=== PATIENT | male | born 1955 | race Hispanic/Latino ===

== ENCOUNTER 2019-07-04 11:41 | Emergency (ER) | payer OTHER ==
[~2019-07-04 11:41] MED LIST: ASPI-1005 PO; FENO145T PO; IBUP-2070 PO; METO25TA3 PO; ROSU5TAB PO
[2019-07-05] MEDS ORDERED: IBUP-2784 PO (10:53)
[2019-07-05] MEDS ORDERED: COLC0.6T67 PO (10:57)
[2019-07-05] MEDS ORDERED: ALLO100T PO (10:57)
[2019-07-05] MEDS ORDERED: INDO50CA98 PO (11:58)
== END 2019-07-04 12:04 | disposition left against medical advice (07) ==
LOC: EDH 11:41
DX: Z53.21 Procedure and treatment not carried out due to patient leaving prior to being seen by health care provider (principal); Z87.891 Personal history of nicotine dependence

== ENCOUNTER 2019-07-04 13:32 | Observation (INO) | payer OTHER ==
[~2019-07-04] VITALS: Ht 188 cm; Wt 109.5 kg
[2019-07-04 15:21] LABS: BASOPHILS % (AUTO) 0.2 % (0.0-5.0); EOSINOPHILS % (AUTO) 0.7 % (0.0-8.0); HEMATOCRIT 45.3 % (42-54); MEAN CORPUSCULAR HEMOGLOBIN 28.9 pg (27.0-33.0); MEAN CORPUSCULAR HGB CONC 32.9 g/dL (32.0-36.0); MONOCYTES % (AUTO) 8.9 % (3.0-13.0); PLATELET COUNT (AUTO) 274 K/uL (130-400); RED BLOOD CELL COUNT(AUTO) 5.15 MIL/uL (4.50-6.20); WHITE BLOOD COUNT (AUTO) 12.3 K/uL (4.8-10.8)
[2019-07-04 15:28] LABS: CREATININE 1.5 mg/dL (0.5-1.5); POTASSIUM 4.2 mmol/L (3.5-5.1)
[2019-07-04 15:32] LABS: ALBUMIN 3.5 g/dL (3.5-5.0); BILIRUBIN,TOTAL 0.7 mg/dL (0.2-1.0); INR 0.99 (0.85-1.15); PARTIAL THROMBOPLASTIN TIME 31.2 SEC (26.3-35.5); PROTHROMBIN TIME 10.4 SEC (9.6-11.6); TOTAL PROTEIN, SERUM 9.3 g/dL (6.0-8.3)
[2019-07-04 15:54] LABS: B-TYPE NATRIURETIC PEPTIDE 36 pg/mL (0-100)
[2019-07-04] MEDS ORDERED: IOHEXOL 350 MG/ML 100ML INFUS..BTL IV ONE (16:42)
[2019-07-04] MEDS ORDERED: SODIUM CHLORIDE 0.9% 1000ML 1,000 ML IV ONE ×2 (16:45→21:38)
[2019-07-04] MEDS ORDERED: ONDANSETRON HCL 4 MG/2 ML VIAL ONE (16:48)
[2019-07-04] MEDS: SODIUM CHLORIDE 0.9% 1000ML 1,000 ML IV SCH (21:15)
[2019-07-04] MEDS ORDERED: ONDANSETRON HCL 4 MG/2 ML VIAL IV PRN (21:15)
[2019-07-04] MEDS ORDERED: MORPHINE SULFATE 2 MG/ML 1ML SYG IV PRN (21:15)
[2019-07-04] MEDS ORDERED: LACTULOSE 20 GM/30 ML UDCUP PO PRN (21:15)
[2019-07-04] MEDS ORDERED: ACETAMINOPHEN 325 MG TAB PO PRN ×2 (21:15)
[2019-07-04 22:10] VITALS: BP 144/91
[2019-07-04] MEDS ORDERED: HYDROCODONE/ACETAMINOPHEN 5/325 MG TAB PO PRN (23:00)
[2019-07-04] MEDS: HYDROCODONE/ACETAMINOPHEN 5/325 MG TAB PO PRN (23:53)
[2019-07-05 04:00] VITALS: BP 113/69
[2019-07-05 08:17] VITALS: BP 122/75
[2019-07-05] MEDS: FAMOTIDINE 20MG TAB 20 MG TAB PO SCH ×2 (10:46→10:48)
[2019-07-05] MEDS: SODIUM CHLORIDE 0.9% 1000ML 1,000 ML IV SCH ×2 (10:47→14:30)
[2019-07-05] MEDS: ENOXAPARIN SODIUM 40 MG/0.4 ML SYRINGE SQ SCH (10:47)
[2019-07-05] MEDS ORDERED: IBUP-2784 PO (10:53)
[2019-07-05] MEDS ORDERED: ALLO100T PO (10:57)
[2019-07-05] MEDS ORDERED: COLC0.6T67 PO (10:57)
[2019-07-05 11:23] VITALS: BP 126/79
[2019-07-05] MEDS ORDERED: ALLOPURINOL 300 MG TABLET PO SCH (11:45)
[2019-07-05] MEDS ORDERED: INDO50CA98 PO (11:58)
[2019-07-05] MEDS ORDERED: INDOMETHACIN 25 MG CAP PO PRN (12:00)
[2019-07-05] MEDS ORDERED: PHARMACY COMMUNICATION MISC SCH (12:00)
[2019-07-05] MEDS ORDERED: COLCHICINE 0.6 MG TABLET PO SCH ×2 (12:15→13:30)
[2019-07-05] MEDS ORDERED: GADODIAMIDE 10 MMOL/20 ML VIAL IV ONE (14:17)
--- NOTE | 2019-07-05 15:15 | NUR ---
CONSULT DR.SIX LUONG, 'S TEACHING YOUNG CAME IN TO TALK TO PT, PT IS CURRENTLY AT MRI, SPOKE TO FAMILY MEMBER AND INFORMED WILL SEE PT TOMORROW.
--- NOTE | 2019-07-05 16:23 | NUR ---
STEEPING PRESS TENDER CALLED IN CONSULT FOR SHANNA THROUGH OFFICE PAGE OUT . PENDING CALL BACK .
[2019-07-05 16:44] VITALS: BP 122/76
--- NOTE | 2019-07-05 18:23 | NUR ---
CM NOTES CHART REVIEWED, NO TRIGGERS, DETAILED CM ASSESSMENT DEFERRED AT THIS TIME
[2019-07-05 20:00] VITALS: BP 124/77
--- NOTE | 2019-07-05 20:20 | NUR ---
Patient was seen and examined in his room ,he appears comfortable however when asked how he is doing he complained he is having chest pain he described it as sharp and 10/10 pain level.He said that it feels like someone is sitting on his chest.Patient was given hydrocodone 2 tabs p.o as patient requested,ECG was taken and MADELIN Carolina was notified and came to examined the patient as well. ECG is normal sinus rhythm.
[2019-07-05] MEDS: HYDROCODONE/ACETAMINOPHEN 5/325 MG TAB PO PRN (20:26)
[2019-07-05] MEDS ORDERED: NITROGLYCERIN 0.4 MG SL TAB SL PRN (20:45)
--- NOTE | 2019-07-05 21:00 | NUR ---
Patient verbalized he feels much better and denies any chest pain at this time, family is at bedside and instructed to use call light for assistance.
[2019-07-05 23:34] VITALS: BP 126/76
[2019-07-06 03:48] VITALS: BP 127/70
[2019-07-06] MEDS: SODIUM CHLORIDE 0.9% 1000ML 1,000 ML IV SCH ×4 (03:50→16:27)
[2019-07-06 05:33] LABS: BASOPHILS % (AUTO) 0.7 % (0.0-5.0); EOSINOPHILS % (AUTO) 5.7 % (0.0-8.0); HEMATOCRIT 39.4 % (42-54); LYMPHOCYTES % (AUTO) 27.9 % (21.0-51.0); MEAN CORPUSCULAR HGB CONC 32.7 g/dL (32.0-36.0); MEAN CORPUSCULAR VOLUME 88.5 fL (79-99); MONOCYTES % (AUTO) 11.1 % (3.0-13.0); NEUTROPHILS % (AUTO) 54.2 % (40.0-77.0); PLATELET COUNT (AUTO) 268 K/uL (130-400); RED BLOOD CELL COUNT(AUTO) 4.45 MIL/uL (4.50-6.20); RED CELL DISTRIBUTION WIDTH 12.5 % (11.0-15.5); WHITE BLOOD COUNT (AUTO) 5.5 K/uL (4.8-10.8)
[2019-07-06 05:54] LABS: ALBUMIN 2.8 g/dL (3.5-5.0); BILIRUBIN,TOTAL 0.3 mg/dL (0.2-1.0); CREATININE 0.8 mg/dL (0.5-1.5); POTASSIUM 3.6 mmol/L (3.5-5.1); TOTAL PROTEIN, SERUM 7.4 g/dL (6.0-8.3)
[2019-07-06] MEDS: ENOXAPARIN SODIUM 40 MG/0.4 ML SYRINGE SQ SCH (08:05)
[2019-07-06 08:22] VITALS: BP 123/74
[2019-07-06] MEDS: MORPHINE SULFATE 2 MG/ML 1ML SYG IVP PRN (11:20)
[2019-07-06 11:46] VITALS: BP 131/79
[2019-07-06 17:10] VITALS: BP 147/93
[2019-07-06 19:30] VITALS: BP 127/88
[2019-07-06 23:56] VITALS: BP 141/88
[2019-07-07] MEDS: SODIUM CHLORIDE 0.9% 1000ML 1,000 ML IV SCH ×2 (01:43→05:52)
[2019-07-07] MEDS: MORPHINE SULFATE 2 MG/ML 1ML SYG IVP PRN (02:20)
[2019-07-07 04:00] VITALS: BP 135/89
[2019-07-07 04:07] LABS: BASOPHILS % (AUTO) 0.6 % (0.0-5.0); EOSINOPHILS % (AUTO) 5.5 % (0.0-8.0); HEMATOCRIT 39.1 % (42-54); LYMPHOCYTES % (AUTO) 26.3 % (21.0-51.0); MEAN CORPUSCULAR HEMOGLOBIN 29.1 pg (27.0-33.0); MEAN CORPUSCULAR HGB CONC 33.8 g/dL (32.0-36.0); MEAN CORPUSCULAR VOLUME 86.1 fL (79-99); MONOCYTES % (AUTO) 10.7 % (3.0-13.0); NEUTROPHILS % (AUTO) 56.5 % (40.0-77.0); PLATELET COUNT (AUTO) 292 K/uL (130-400); RED BLOOD CELL COUNT(AUTO) 4.54 MIL/uL (4.50-6.20); RED CELL DISTRIBUTION WIDTH 12.2 % (11.0-15.5); WHITE BLOOD COUNT (AUTO) 5.4 K/uL (4.8-10.8)
[2019-07-07 04:19] LABS: BILIRUBIN,TOTAL 0.3 mg/dL (0.2-1.0); CREATININE 0.8 mg/dL (0.5-1.5); POTASSIUM 3.7 mmol/L (3.5-5.1); TOTAL PROTEIN, SERUM 7.5 g/dL (6.0-8.3)
[2019-07-07 08:04] VITALS: BP 131/81
--- NOTE | 2019-07-07 08:30 | NUR ---
CM NOTE CHART REVIWED, HERE FOR PAIN, YOUNG AND MOBILE;NO TRIGGERS TO CM, WILL JEIMY DETAILE DASSESSMENT AT THIS TIME UNLESS TRIGGERED Addendum: 07/08/19 at 1426 by ADE SCHREIBER RN CM Amended: Links added.
--- NOTE | 2019-07-07 08:50 | NUR ---
MATHEW LEARY PATIENT REPORTED TO ME THAT HE HAS NOT AMBULATED IN 3 DAYS. BEFORE THIS HOSPITALIZATION, PATIENT WAS AMBULATING. PAGED DR. LEARY TO INQUIRE ABOUT PHYSICAL ACTIVITY RESTRICTION PRIOR TO INITIATING PHYSICAL THERAPY EVALUATION.
[2019-07-07] MEDS ORDERED: IBUP-2070 PO (11:45)
[2019-07-07 11:55] VITALS: BP 115/73
--- NOTE | 2019-07-07 14:15 | NUR ---
DISCHARGE MEDICATIONS PATIENTS DAUGHTER STATES "WE NEED A PRESCRIPTION FOR TYLENOL #3 AND ALLOPURINOL." I ANSWERED THAT ALLOPURINOL WAS REPORTED A HOME MEDICATION, WHICH IS WHY HOSPITALIST ORDERED TO CONTINUE AT HOME. PATIENTS DAUGHTER REPLIED "[PATIENT] DOESNT HAVE A PRESCRIPTION. WE SAID IT WAS A HOME MEDICATION BECAUSE HE NEEDS IT." I ALSO EXPLAINED THAT HOSPITALIST PRESCRIBED IBUPROFEN BECAUSE MEDICATION IS A ANTI-INFLAMMATORY AND SHOULD HELP WITH GOUT EXACERBATION." PATIENTS DAUGHTER APPEARED UPSET, I PAGED HOSPITALIST TO INFORM OF PATIENT AND PATIENT DAUGHTER CONCERNS.
--- NOTE | 2019-07-07 14:20 | NUR ---
Sierra TOBIN NP SPOKE TO Sierra TOBIN NP FOR Dina JIMENEZ VIA TELEPHONE AND INFORMED OF PATIENT/FAMILY CONCERNS AND SHE REPLIED "IF PATIENT NEEDS ALLOPURINOL, DR. OTERO WILL PRESCRIBE AT FOLLOW-UP APPOINTMENT. AND I WILL NOT PRESCRIBE TYLENOL #3 BECAUSE IBUPROFEN IS ANTI-INFLAMMATORY AND IS WHAT PATIENT SHOULD TAKE FOR GOUT." INFORMED PATIENT OF THIS AND PATIENT WAS OKAY WITH THE ANSWER.
== END 2019-07-07 14:56 | disposition home or self-care (01) ==
LOC: EDH 13:32 → EDHIP 21:05 → 4DH 21:57
PROVIDERS: ADMIT Internal Medicine; ATTEND Internal Medicine
DX: N40.0 Benign prostatic hyperplasia without lower urinary tract symptoms (principal); M10.9 Gout, unspecified; M54.5 Low back pain; K76.0 Fatty (change of) liver, not elsewhere classified; R55 Syncope and collapse; M54.6 Pain in thoracic spine; R79.89 Other specified abnormal findings of blood chemistry; N28.9 Disorder of kidney and ureter, unspecified; I71.4 Abdominal aortic aneurysm, without rupture; I73.9 Peripheral vascular disease, unspecified; M17.11 Unilateral primary osteoarthritis, right knee; M19.90 Unspecified osteoarthritis, unspecified site; E79.0 Hyperuricemia without signs of inflammatory arthritis and tophaceous disease; Z90.49 Acquired absence of other specified parts of digestive tract; Z86.79 Personal history of other diseases of the circulatory system; Z87.39 Personal history of other diseases of the musculoskeletal system and connective tissue; Z87.442 Personal history of urinary calculi; Z79.899 Other long term (current) drug therapy
CPT/HCPCS: 36415 ×3; 71045 ×2; 71275; 72128; 72131; 72146; 72148; 73562; 74174; 80053 ×3; 82550; 83880; 84484 ×2; 84550; 85025 ×3; 85378; 85610; 85730; 93005 ×2; 96361 ×2; 96372 ×2; 96374; 96375; 96376; 97039; 97116; 97161; 99285; G0378 ×65; G8978; G8979; G8980; G8981; G8982; G8983; J1650 ×3; J2405 ×2; J7030 ×2; Q9967; A9579

== ENCOUNTER 2019-07-18 09:04 | Emergency (ER) | payer OTHER ==
[~2019-07-18 09:04] MED LIST changes: +ALLO100T PO; -ASPI-1005 PO; +COLC0.6T67 PO; -FENO145T PO; +INDO50CA98 PO; -METO25TA3 PO; -ROSU5TAB PO
[2019-07-18] MEDS ORDERED: ONDANSETRON HCL 4 MG/2 ML VIAL ONE (09:51)
[2019-07-18] MEDS ORDERED: SODIUM CHLORIDE 0.9% 1000ML 1,000 ML IV ONE (09:52)
[2019-07-18] MEDS ORDERED: MORPHINE SULFATE 4 MG/1ML SYG ONE (09:52)
[2019-07-18 10:32] LABS: BASOPHILS % (AUTO) 0.3 % (0.0-5.0); EOSINOPHILS % (AUTO) 0.2 % (0.0-8.0); HEMATOCRIT 44.9 % (42-54); LYMPHOCYTES % (AUTO) 12.9 % (21.0-51.0); MEAN CORPUSCULAR HEMOGLOBIN 28.8 pg (27.0-33.0); MEAN CORPUSCULAR HGB CONC 33.6 g/dL (32.0-36.0); MEAN CORPUSCULAR VOLUME 85.7 fL (79-99); MONOCYTES % (AUTO) 9.3 % (3.0-13.0); NEUTROPHILS % (AUTO) 76.9 % (40.0-77.0); PLATELET COUNT (AUTO) 332 K/uL (130-400); RED BLOOD CELL COUNT(AUTO) 5.24 MIL/uL (4.50-6.20); RED CELL DISTRIBUTION WIDTH 12.9 % (11.0-15.5); WHITE BLOOD COUNT (AUTO) 14.7 K/uL (4.8-10.8)
[2019-07-18 10:42] LABS: CREATININE 1.7 mg/dL (0.5-1.5)
[2019-07-18 10:43] LABS: INR 1.05 (0.85-1.15); PARTIAL THROMBOPLASTIN TIME 30.4 SEC (26.3-35.5)
[2019-07-18 10:46] LABS: ALBUMIN 3.4 g/dL (3.5-5.0); BILIRUBIN,TOTAL 0.9 mg/dL (0.2-1.0); TOTAL PROTEIN, SERUM 9.2 g/dL (6.0-8.3)
[2019-07-18 10:50] LABS: APPEARANCE,URINE Cloudy (CLEAR); BILIRUBIN,URINE Small (NEGATIVE); COLOR,URINE Dark Yellow (YELLOW); GLUCOSE, URINE (UA) Negative (NEGATIVE); KETONES,URINE Trace mg/dL (NEGATIVE); LEUKOCYTE ESTERASE ,URINE Trace (NEGATIVE); NITRATE,URINE Negative (NEGATIVE); OCCULT BLOOD,URINE Moderate (NEGATIVE); PROTEIN,URINE POS 2+ mg/dL (NEGATIVE)
[2019-07-18 11:04] LABS: BACTERIA,URINE Few /HPF (None Seen); MUCUS,URINE Few LPF (None Seen); RBC,URINE 0-1 /HPF (0-1); SQUAMOUS EPITHELIAL CELL,UR Rare /HPF (0-2)
== END 2019-07-18 12:15 | disposition home or self-care (01) ==
LOC: EDH 09:04
DX: G89.29 Other chronic pain (principal); M54.9 Dorsalgia, unspecified; M48.061 Spinal stenosis, lumbar region without neurogenic claudication; Q05.9 Spina bifida, unspecified; M19.90 Unspecified osteoarthritis, unspecified site
CPT/HCPCS: 36415; 71045; 80053; 81001; 82550; 84484; 85025; 85610; 85730; 93005; 96374; 96375; 99285; J2270; J2405; J7030

== ENCOUNTER 2019-08-28 00:14 | Inpatient (IN) | payer OTHER ==
[2019-08-28] MEDS ORDERED: ACETAMINOPHEN EXTRA STRENGTH 500 MG TABLET ONE (02:03)
[2019-08-28 02:04] LABS: BASOPHILS % (AUTO) 0.4 % (0.0-5.0); EOSINOPHILS % (AUTO) 1.5 % (0.0-8.0); HEMATOCRIT 40.7 % (42-54); LYMPHOCYTES % (AUTO) 20.1 % (21.0-51.0); MEAN CORPUSCULAR HEMOGLOBIN 28.9 pg (27.0-33.0); MEAN CORPUSCULAR HGB CONC 33.4 g/dL (32.0-36.0); MEAN CORPUSCULAR VOLUME 86.6 fL (79-99); MONOCYTES % (AUTO) 10.9 % (3.0-13.0); NEUTROPHILS % (AUTO) 66.7 % (40.0-77.0); PLATELET COUNT (AUTO) 390 K/uL (130-400); RED CELL DISTRIBUTION WIDTH 13.1 % (11.0-15.5); WHITE BLOOD COUNT (AUTO) 7.5 K/uL (4.8-10.8)
[2019-08-28 02:24] LABS: INR 0.98 (0.85-1.15); PARTIAL THROMBOPLASTIN TIME 36.7 SEC (26.3-35.5); PROTHROMBIN TIME 10.6 SEC (9.6-11.6)
[2019-08-28 02:50] LABS: CARBON DIOXIDE 26 mmol/L (21-32); CHLORIDE 93 mmol/L (101-111); CREATININE 0.9 mg/dL (0.5-1.5); GLOMERULAR FILTR. RATE CALC 90 mL/min (>60); GLUCOSE,RANDOM 113 mg/dL (70-105); POTASSIUM 3.5 mmol/L (3.5-5.1); SODIUM SERUM 133 mmol/L (136-145); UREA NITROGEN, BLOOD 10 mg/dL (7-18)
[2019-08-28 03:01] LABS: ALANINE AMINOTRANSFERASE 34 U/L (12-78); ASPARTATE AMINOTRANSFERASE 34 U/L (10-37); BILIRUBIN,TOTAL 0.4 mg/dL (0.2-1.0); CREATINE KINASE, TOTAL 65 U/L (21-232); MYOGLOBIN 52 ng/mL (10-92); TOTAL PROTEIN, SERUM 8.3 g/dL (6.0-8.3); TROPONIN I < 0.04 ng/mL (0.00-0.06)
[2019-08-28 03:24] LABS: ALBUMIN 2.7 g/dL (3.5-5.0)
[2019-08-28 03:26] LABS: APPEARANCE,URINE Clear (CLEAR); BILIRUBIN,URINE Negative (NEGATIVE); COLOR,URINE Yellow (YELLOW); GLUCOSE, URINE (UA) Negative (NEGATIVE); KETONES,URINE >=80 mg/dL (NEGATIVE); LEUKOCYTE ESTERASE ,URINE Negative (NEGATIVE); NITRATE,URINE Negative (NEGATIVE); OCCULT BLOOD,URINE Moderate (NEGATIVE); PROTEIN,URINE Trace mg/dL (NEGATIVE)
[2019-08-28] MEDS ORDERED: MORPHINE SULFATE 2 MG/ML 1ML SYG IV PRN (03:30)
[2019-08-28] MEDS ORDERED: ONDANSETRON HCL 4 MG/2 ML VIAL IV PRN (03:30)
[2019-08-28 03:31] LABS: BACTERIA,URINE Rare /HPF (None Seen); MUCUS,URINE Few LPF (None Seen); SQUAMOUS EPITHELIAL CELL,UR Few /HPF (0-2); WBC,URINE None Seen /HPF (0-1)
[2019-08-28] MEDS ORDERED: LACTULOSE 20 GM/30 ML UDCUP PO PRN (03:45)
[2019-08-28] MEDS ORDERED: ACETAMINOPHEN 325 MG TAB PO PRN ×2 (03:45)
[2019-08-28] MEDS ORDERED: LACTATED RINGERS 1000ML 1,000 ML IV SCH (03:45)
[2019-08-28] MEDS ORDERED: CEFTRIAXONE SODIUM 1 GM IVP SCH (06:30)
[2019-08-28] MEDS ORDERED: CEFTRIAXONE SODIUM 1 GM ONE (06:53)
[2019-08-28 07:00] LABS: BASOPHILS % (AUTO) 0.4 % (0.0-5.0); EOSINOPHILS % (AUTO) 1.6 % (0.0-8.0); HEMATOCRIT 37.2 % (42-54); LYMPHOCYTES % (AUTO) 22.3 % (21.0-51.0); MEAN CORPUSCULAR HEMOGLOBIN 28.3 pg (27.0-33.0); MEAN CORPUSCULAR HGB CONC 32.8 g/dL (32.0-36.0); MEAN CORPUSCULAR VOLUME 86.3 fL (79-99); MONOCYTES % (AUTO) 11.9 % (3.0-13.0); NEUTROPHILS % (AUTO) 63.5 % (40.0-77.0); PLATELET COUNT (AUTO) 342 K/uL (130-400); RED BLOOD CELL COUNT(AUTO) 4.31 MIL/uL (4.50-6.20); RED CELL DISTRIBUTION WIDTH 13.1 % (11.0-15.5)
[2019-08-28 07:19] LABS: ALBUMIN 2.5 g/dL (3.5-5.0); BILIRUBIN,TOTAL 0.4 mg/dL (0.2-1.0); CREATININE 0.7 mg/dL (0.5-1.5); POTASSIUM 3.5 mmol/L (3.5-5.1); TOTAL PROTEIN, SERUM 7.5 g/dL (6.0-8.3); URIC ACID 5.1 mg/dL (2.6-7.2)
[2019-08-28 07:43] LABS: CRP QUANTITATIVE 205.2 mg/L (0.00-9.0)
[2019-08-28 08:04] LABS: ERYTHROCYTE SEDIMENTATION RATE 120 MM/HR (0-20)
[2019-08-28] MEDS ORDERED: FAMOTIDINE/PF 20 MG/2 ML VIAL IV SCH (09:00)
[2019-08-28] MEDS ORDERED: DOCUSATE NA 100MG/10ML UDCUP PO SCH (09:00)
[2019-08-28] MEDS ORDERED: METOCLOPRAMIDE 10 MG/2 ML VIAL IVP SCH (09:00)
== END 2019-08-28 11:00 | disposition left against medical advice (07) | DRG 872 ==
LOC: EDH 00:14 → EDHIP 03:29
PROVIDERS: ADMIT Family Medicine; ATTEND Family Medicine
DX: A41.9 Sepsis, unspecified organism (principal); M10.9 Gout, unspecified; M19.90 Unspecified osteoarthritis, unspecified site; K59.09 Other constipation; M48.00 Spinal stenosis, site unspecified; N40.0 Benign prostatic hyperplasia without lower urinary tract symptoms; H91.90 Unspecified hearing loss, unspecified ear; Z74.01 Bed confinement status; Z82.49 Family history of ischemic heart disease and other diseases of the circulatory system
CPT/HCPCS: 36415; 71045; 73562; 80053; 81001; 82550; 83605; 83874; 84145; 84484; 84550; 85025; 85610; 85651; 85730; 86000; 86140; 87040; 87088; 87633; 87804; 93005; G0378; J0696

== ENCOUNTER 2019-09-07 18:48 | Inpatient (IN) | payer OTHER ==
[~2019-09-07] VITALS: Ht 175.3 cm; Wt 92.1 kg
[2019-09-07] MEDS ORDERED: ACETAMINOPHEN 325 MG TAB ONE (20:20)
[2019-09-07 20:21] LABS: BASOPHILS % (AUTO) 0.3 % (0.0-5.0); EOSINOPHILS % (AUTO) 0.3 % (0.0-8.0); HEMATOCRIT 41.8 % (42-54); LYMPHOCYTES % (AUTO) 13.5 % (21.0-51.0); MEAN CORPUSCULAR HEMOGLOBIN 28.6 pg (27.0-33.0); MEAN CORPUSCULAR HGB CONC 33.7 g/dL (32.0-36.0); MEAN CORPUSCULAR VOLUME 84.8 fL (79-99); MONOCYTES % (AUTO) 9.8 % (3.0-13.0); NEUTROPHILS % (AUTO) 75.5 % (40.0-77.0); PLATELET COUNT (AUTO) 350 K/uL (130-400); RED BLOOD CELL COUNT(AUTO) 4.93 MIL/uL (4.50-6.20); RED CELL DISTRIBUTION WIDTH 13.5 % (11.0-15.5); WHITE BLOOD COUNT (AUTO) 13.6 K/uL (4.8-10.8)
[2019-09-07 20:41] LABS: INR 1.05 (0.85-1.15); PARTIAL THROMBOPLASTIN TIME 34.1 SEC (26.3-35.5); PROTHROMBIN TIME 11.3 SEC (9.6-11.6)
[2019-09-07 20:44] LABS: POTASSIUM 3.8 mmol/L (3.5-5.1)
[2019-09-07 20:49] LABS: ALBUMIN 3.1 g/dL (3.5-5.0); BILIRUBIN,TOTAL 0.9 mg/dL (0.2-1.0); TOTAL PROTEIN, SERUM 8.5 g/dL (6.0-8.3)
[2019-09-07 21:43] LABS: APPEARANCE,URINE Clear (CLEAR); BILIRUBIN,URINE Negative (NEGATIVE); COLOR,URINE Dark Yellow (YELLOW); GLUCOSE, URINE (UA) Negative (NEGATIVE); KETONES,URINE >=80 mg/dL (NEGATIVE); LEUKOCYTE ESTERASE ,URINE Trace (NEGATIVE); NITRATE,URINE Negative (NEGATIVE); OCCULT BLOOD,URINE Small (NEGATIVE); PROTEIN,URINE Trace mg/dL (NEGATIVE)
[2019-09-07 21:51] LABS: AMPHET/METH SCREEN,URINE NEGATIVE (NEGATIVE); BARBITURATE SCREEN, URINE NEGATIVE (NEGATIVE); BENZODIAZEPINES SCREEN,URINE NEGATIVE (NEGATIVE); CANNABINOID SCREEN,URINE NEGATIVE (NEGATIVE); COCAINE SCREEN,URINE NEGATIVE (NEGATIVE); OPIATE SCREEN,URINE POSITIVE (NEGATIVE); PHENCYCLIDINE SCREEN,URINE NEGATIVE (NEGATIVE)
[2019-09-07 22:04] LABS: FINE GRANULAR CASTS,URINE 0-2 /LPF (None Seen); MUCUS,URINE Moderate LPF (None Seen)
[2019-09-07 22:08] LABS: BACTERIA,URINE Moderate /HPF (None Seen); SQUAMOUS EPITHELIAL CELL,UR 0-2 /HPF (0-2); WBC,URINE 0-1 /HPF (0-1)
[2019-09-07] MEDS: CEFTRIAXONE SODIUM 1 GM IVP SCH (23:00)
[2019-09-07] MEDS ORDERED: ONDANSETRON HCL 4 MG/2 ML VIAL IV PRN (23:00)
[2019-09-07] MEDS ORDERED: LACTULOSE 20 GM/30 ML UDCUP PO PRN (23:00)
[2019-09-07] MEDS ORDERED: IBUPROFEN 800 MG TAB PO PRN (23:00)
[2019-09-08] MEDS ORDERED: CEFTRIAXONE SODIUM 1 GM ONE (00:50)
[2019-09-08 01:05] VITALS: BP 130/85
[2019-09-08 04:00] VITALS: BP 118/78
[2019-09-08 04:13] LABS: BASOPHILS % (AUTO) 0.3 % (0.0-5.0); EOSINOPHILS % (AUTO) 0.9 % (0.0-8.0); HEMATOCRIT 40.4 % (42-54); LYMPHOCYTES % (AUTO) 20.4 % (21.0-51.0); MEAN CORPUSCULAR HEMOGLOBIN 28.7 pg (27.0-33.0); MEAN CORPUSCULAR HGB CONC 32.4 g/dL (32.0-36.0); MEAN CORPUSCULAR VOLUME 88.4 fL (79-99); MONOCYTES % (AUTO) 11.5 % (3.0-13.0); NEUTROPHILS % (AUTO) 66.3 % (40.0-77.0); PLATELET COUNT (AUTO) 337 K/uL (130-400); RED BLOOD CELL COUNT(AUTO) 4.57 MIL/uL (4.50-6.20); RED CELL DISTRIBUTION WIDTH 13.6 % (11.0-15.5); WHITE BLOOD COUNT (AUTO) 10.1 K/uL (4.8-10.8)
[2019-09-08 04:37] LABS: ALBUMIN 2.8 g/dL (3.5-5.0); BILIRUBIN,TOTAL 0.6 mg/dL (0.2-1.0); CREATININE 0.9 mg/dL (0.5-1.5); URIC ACID 5.1 mg/dL (2.6-7.2)
[2019-09-08 04:59] LABS: CRP QUANTITATIVE 192.1 mg/L (0.00-9.0)
[2019-09-08 05:11] LABS: ERYTHROCYTE SEDIMENTATION RATE 74 MM/HR (0-20)
[2019-09-08 07:45] VITALS: BP 119/80
[2019-09-08] MEDS: KETOROLAC TROMETHAMINE 30MG/ML IV PRN (10:34)
[2019-09-08] MEDS: FAMOTIDINE 20MG TAB 20 MG TAB PO SCH ×2 (10:34→19:08)
[2019-09-08] MEDS: ALLOPURINOL 100 MG TABLET PO SCH (10:35)
[2019-09-08] MEDS: CEFTRIAXONE SODIUM 1 GM IVP SCH ×2 (10:35→22:07)
[2019-09-08 11:19] VITALS: BP 126/79
--- NOTE | 2019-09-08 11:26 | NUR ---
CHART REVIEWED, ACF UPLOADED TO ONE CONTENT
--- NOTE | 2019-09-08 11:51 | NUR ---
INITIAL SW spoke to daughter, Chey Bunch, [phone]. Patient lives with spouse, Daily Bunch, [phone]. No home services or DME. Patient was able to complete ADL's independently and drive about two months ago but now he requires assistance as per daughter. PCP is Dr. Christophe Thomas at [facility]. Pharmacy is [facility]. DCP is home. SW contacted Tomas Wilson, Inpatient Contract Protein Chemist at [facility]. Desi informed DARI that patient was Not Service Connected. CM made aware. Addendum: 09/08/19 at 1156 by GRACE GARCIA Amended: Links added.
[2019-09-08 16:00] VITALS: BP 124/76
[2019-09-08 19:00] VITALS: BP 108/69
[2019-09-08] MEDS: SODIUM CHLORIDE 0.9% 1000ML 1,000 ML IV SCH ×2 (19:00→19:08)
[2019-09-09] VITALS: BP 108/65
[2019-09-09 04:00] VITALS: BP 118/87
[2019-09-09 05:39] LABS: BASOPHILS % (AUTO) 0.4 % (0.0-5.0); EOSINOPHILS % (AUTO) 1.3 % (0.0-8.0); HEMATOCRIT 37.8 % (42-54); LYMPHOCYTES % (AUTO) 16.8 % (21.0-51.0); MEAN CORPUSCULAR HGB CONC 32.8 g/dL (32.0-36.0); MEAN CORPUSCULAR VOLUME 88.3 fL (79-99); PLATELET COUNT (AUTO) 307 K/uL (130-400); RED BLOOD CELL COUNT(AUTO) 4.28 MIL/uL (4.50-6.20); RED CELL DISTRIBUTION WIDTH 13.7 % (11.0-15.5); WHITE BLOOD COUNT (AUTO) 7.8 K/uL (4.8-10.8)
[2019-09-09 05:52] LABS: ALBUMIN 2.5 g/dL (3.5-5.0); BILIRUBIN,TOTAL 0.3 mg/dL (0.2-1.0); CREATININE 0.7 mg/dL (0.5-1.5); POTASSIUM 3.5 mmol/L (3.5-5.1); TOTAL PROTEIN, SERUM 7.2 g/dL (6.0-8.3)
[2019-09-09] MEDS ORDERED: POTASSIUM CHLORIDE 20MEQ/100ML 100 ML IV PRN (06:00)
[2019-09-09] MEDS ORDERED: LIDOCAINE HCL-MPF 1% 2ML VIAL IV PRN (06:00)
[2019-09-09] MEDS ORDERED: POTASSIUM CHLORIDE 10% ELIXIR 20 MEQ/15 ML UDCUP PO PRN (06:00)
[2019-09-09] MEDS ORDERED: POTASSIUM CHLORIDE 20 MEQ ERTAB PO PRN (06:00)
[2019-09-09 08:13] VITALS: BP 102/83
[2019-09-09] MEDS: ALLOPURINOL 100 MG TABLET PO SCH (09:00)
[2019-09-09] MEDS: FAMOTIDINE 20MG TAB 20 MG TAB PO SCH ×2 (09:25→21:05)
[2019-09-09] MEDS: KETOROLAC TROMETHAMINE 30MG/ML IV PRN (12:21)
[2019-09-09] MEDS: CEFTRIAXONE SODIUM 1 GM IVP SCH (12:27)
[2019-09-09 12:38] VITALS: BP 118/81
--- NOTE | 2019-09-09 12:52 | NUR ---
RD NOTIFICATION Pt tolerating Heart healthy diet order with improved PO intake at 100%. No report of GI distress. Obesity Class I. Pt with Left Knee pain, pending MRI. recommend 30mL ProMod QD. RD to continue to monitor. Please notify as additional concerns arise. Thank you. Addendum: 09/09/19 at [address] RD Amended: Links added.
[2019-09-09] MEDS: SODIUM CHLORIDE 0.9% 1000ML 1,000 ML IV SCH (15:00)
[2019-09-09 16:48] VITALS: BP 124/82
[2019-09-09] MEDS ORDERED: LIDOCAINE HCL-MPF 1% 5ML AMP IJ SCH (16:56)
[2019-09-09] MEDS ORDERED: LIDOCAINE HCL MPF 1% 5ML VIAL ONE (17:02)
[2019-09-09] MEDS ORDERED: TRAM50TA4 PO (17:35)
[2019-09-09 19:15] VITALS: BP 120/82
--- NOTE | 2019-09-09 22:00 | NUR ---
DISCHARGE Pt discharged to home at this time. 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 Discharge instructions given to patient, pt very hard of hearing. Instructions called again to at home for more clarity, verbalized understanding. PIV's x 2 discontinued, dressing dry and intact. Vital signs stable, not in any form of distress.
== END 2019-09-09 22:01 | disposition home or self-care (01) | DRG 872 ==
LOC: EDH 18:48 → EDHIP 18:49 → 3BH 09-08 00:17
PROVIDERS: ADMIT Internal Medicine; ATTEND Internal Medicine
DX: A41.9 Sepsis, unspecified organism (principal); N39.0 Urinary tract infection, site not specified; M00.9 Pyogenic arthritis, unspecified; M25.462 Effusion, left knee; I10 Essential (primary) hypertension; M19.90 Unspecified osteoarthritis, unspecified site; M10.9 Gout, unspecified; N40.0 Benign prostatic hyperplasia without lower urinary tract symptoms; Z82.49 Family history of ischemic heart disease and other diseases of the circulatory system; Z87.11 Personal history of peptic ulcer disease
CPT/HCPCS: 36415; 71045; 73560; 73721; 74176; 76882; 80053; 80305; 81001; 82550; 83605; 84145; 84484; 84550; 85025; 85610; 85651; 85730; 86140; 87040; 87088; 87804; 87880; 93005; 99291; G0378; J0696; J1030; J1885; J3490

== ENCOUNTER 2019-10-27 19:56 | Emergency (ER) | payer OTHER ==
[~2019-10-27 19:56] MED LIST changes: +TRAM50TA4 PO
== END 2019-10-27 20:19 | disposition left against medical advice (07) ==
LOC: EDH 19:56
DX: Z53.21 Procedure and treatment not carried out due to patient leaving prior to being seen by health care provider (principal); Z91.030 Bee allergy status; Z91.048 Other nonmedicinal substance allergy status

== ENCOUNTER 2023-09-21 07:36 | Day surgery (SDC) | payer MEDICARE ==
[2023-09-17 15:47] LABS: BASOPHILS # (AUTO) 0.02 K/uL (0.00-0.20); BASOPHILS % (AUTO) 0.3 % (0.0-5.0); EOSINOPHILS # (AUTO) 0.16 K/uL (0.00-0.70); EOSINOPHILS % (AUTO) 2.3 % (0.0-8.0); IMMATURE GRANULOCYTE ABSOLUTE 0.02 K/uL (0-1); LYMPHOCYTES # (AUTO) 1.6 K/uL (1.0-4.8); MEAN CORPUSCULAR HEMOGLOBIN 30.1 pg (27.0-33.0); MEAN CORPUSCULAR HGB CONC 33.3 g/dL (32.0-36.0); MEAN CORPUSCULAR VOLUME 90.6 fL (79-99); MONOCYTES # (AUTO) 0.6 K/uL (0.1-1.0); MONOCYTES % (AUTO) 8.3 % (3.0-13.0); NEUTROPHILS # (AUTO) 4.6 K/uL (1.8-7.7); NEUTROPHILS % (AUTO) 65.8 % (40.0-77.0); PLATELET COUNT (AUTO) 249 K/uL (130-400); RED BLOOD CELL COUNT(AUTO) 5.08 MIL/uL (4.50-6.20); RED CELL DISTRIBUTION WIDTH 13.2 % (11.0-15.5)
[2023-09-17 15:56] LABS: CREATININE 1.1 mg/dL (0.5-1.3)
[2023-09-17 16:41] VITALS: BP 129/86; PULSE 73; RESP 18
[~2023-09-21] VITALS: Ht 188 cm; Wt 101.7 kg
[2023-09-21] VITALS (16 sets, daily range): BP systolic 113–140; BP diastolic 55–75; PULSE 53–70; RESP 14–18
[~2023-09-21 07:36] MED LIST changes: -COLC0.6T67 PO; -IBUP-2070 PO; -INDO50CA98 PO; +TRAM100T40 PO; -TRAM50TA4 PO
[2023-09-21] MEDS: LACTATED RINGERS 1000ML 1,000 ML IV ONE (07:43)
[2023-09-21] MEDS: CEFAZOLIN SODIUM 2 GM VIAL ONE (07:43)
[2023-09-21] MEDS ORDERED: METOCLOPRAMIDE 10 MG/2 ML VIAL ONE (07:59)
[2023-09-21] MEDS ORDERED: METOCLOPRAMIDE 10 MG/2 ML VIAL IVP ONE (08:00)
[2023-09-21] MEDS ORDERED: ROPIVACAINE 0.5% 5MG/ML 30ML ONE (10:24)
[2023-09-21] MEDS ORDERED: KETAMINE 50MG/ML SYRINGE 50 MG/ML DISP.SYRIN ONE (10:25)
[2023-09-21] MEDS ORDERED: ROCURONIUM BROMIDE 10MG/1ML 5ML VL ONE (10:28)
[2023-09-21] MEDS ORDERED: PROPOFOL 10 MG/ML 20ML VIAL IV ONE (10:28)
[2023-09-21] MEDS ORDERED: ONDANSETRON 4MG INJ ONE (10:28)
[2023-09-21] MEDS ORDERED: MIDAZOLAM HCL 1 MG/ML 2ML VIAL ONE (10:29)
[2023-09-21] MEDS ORDERED: FENTANYL CITRATE PF 50 MCG/1 ML 2ML VIAL ONE ×2 (10:29→12:38)
[2023-09-21] MEDS ORDERED: DEXAMETHASONE SOD PHOSPHATE 10MG/ML 1ML VIAL ONE ×2 (10:30→12:18)
[2023-09-21] MEDS: LIDOCAINE 2%-EPI 1:200,000 20 ML VIAL IJ ONE (11:23)
[2023-09-21] MEDS ORDERED: EPHEDRINE SULFATE 50 MG/ML AMPULE ONE (11:30)
[2023-09-21] MEDS ORDERED: KETOROLAC 30MG VIAL (30MG/ML) ONE (12:13)
[2023-09-21] MEDS ORDERED: NEOSTIGMINE METHYLSULFATE 1MG/ML IV ONE (12:14)
[2023-09-21] MEDS ORDERED: GLYCOPYRROLATE 0.2 MG/ML 5 ML VIAL ONE (12:14)
== END 2023-09-21 14:26 | disposition home or self-care (01) ==
LOC: DAH 07:36
PROVIDERS: ATTEND Surgery
DX: K40.20 Bilateral inguinal hernia, without obstruction or gangrene, not specified as recurrent (principal); M10.9 Gout, unspecified; Z79.899 Other long term (current) drug therapy; Z79.01 Long term (current) use of anticoagulants; Z90.49 Acquired absence of other specified parts of digestive tract; Z98.890 Other specified postprocedural states; Z98.52 Vasectomy status
CPT/HCPCS: 80048; 85025; 36415; 93005; 49650; 76942; 76705; 64425; A6260; A4663; J7120 ×2; A4344; A4215 ×3; J3010 ×2; J1100 ×2; J3490 ×5; J2250; J2704; J2405; J1885; J2710; J2765; J2795; J0690; C1781 ×2; A4930 ×2; A4223; A4222; A4221

== ENCOUNTER → 2024-02-17 | Outpatient (CLI) | payer MEDICARE | END | disposition home or self-care (01) | LOC: RAH 15:21 | PROVIDERS: ATTEND Internal Medicine | DX: Z01.818 Encounter for other preprocedural examination (principal); M47.815 Spondylosis without myelopathy or radiculopathy, thoracolumbar region | CPT/HCPCS: 71046 ==

== ENCOUNTER → 2024-05-06 | Outpatient (CLI) | payer MEDICARE ==
--- NOTE | 2024-05-07 06:39 | EKG ---
[facility] Test Date: 2024-05-06 Test Time: 13:46:52 Pat Name: JOSÉ HOWARD Department: LAB Patient ID: [id number] Room: Gender: M Carpet Renovator: [id number] : 1955 Requested By: QUAN AREVALO Order Number: [id number] Reading MD: Adrienne Thomas Measurements Intervals Falcon Rate: 93 P: -71 IA: 230 QRS: 10 QRSD: 93 T: -16 QT: 347 QTc: 431 Interpretive Statements Sinus or ectopic atrial rhythm Prolonged IA interval Probable inferior infarct, old Compared to ECG 09/17/2023 14:37:46 Ectopic atrial rhythm now present First degree AV block now present Myocardial infarct finding now present Sinus rhythm no longer present Electronically Signed On 05-07-2024 16:19:55 SEWING DEPARTMENT SUPERVISOR by Adrienne Thomas Please click the below link to view image of tracing.
== END | disposition home or self-care (01) ==
LOC: LAB 12:23
PROVIDERS: ATTEND Anesthesiology
DX: Z01.810 Encounter for preprocedural cardiovascular examination (principal); I44.30 Unspecified atrioventricular block; I21.9 Acute myocardial infarction, unspecified
CPT/HCPCS: 93005